=== PATIENT | female | born 1980 | race Two or more races ===

== ENCOUNTER 2016-12-23 19:00 | Emergency (ER) | payer OTHER ==
[~2016-12-23] VITALS: Ht 152.4 cm; Wt 45.4 kg
[2016-12-23] MEDS: IV NORMAL SALINE 1000 ML BAG IV ONE (19:41)
[2016-12-23] MEDS: ONDANSETRON IV *ER 4 MG/2 ML VIAL IV ONE (19:43)
[2016-12-23] MEDS: HYDROMORPHONE 1 MG/1 ML DISP.SYRIN IV ONE (19:43)
[2016-12-23 19:45] LABS: HEMATOCRIT 41.5 % (37-47); LYMPHOCYTES % (AUTO) 7.2 % (20.5-51.5); MEAN CORPUSCULAR HEMOGLOBIN 30.3 UUG (27.0-31.0); MEAN CORPUSCULAR HGB CONC 34 g/dL (32.0-37.0); MEAN CORPUSCULAR VOLUME 89.8 FL (81.0-99.0); NEUTROPHILS % (AUTO) 90.6 % (38.5-71.5); PLATELET COUNT (AUTO) 208 K/UL (150-450); RED BLOOD CELL COUNT(AUTO) 4.62 MIL/UL (4.2-5.4)
[2016-12-23 19:46] LABS: BASOPHILS % (AUTO) 0.2 % (0.0-2.0); EOSINOPHILS # (AUTO) 0.1 K/uL (0.0-0.7); EOSINOPHILS % (AUTO) 0.9 % (0.0-7.0); LYMPHOCYTES # (AUTO) 0.9 K/UL (0.8-4.8); MONOCYTES # (AUTO) 0.1 K/UL (0.1-1.30); MONOCYTES % (AUTO) 1.1 % (0.0-11.0); NEUTROPHILS # (AUTO) 10.9 K/UL (1.8-8.9)
[2016-12-23] MEDS ORDERED: HYDROMORPHONE 2 MG/1 ML DISP.SYRIN ONE (19:47)
[2016-12-23] MEDS ORDERED: ONDANSETRON 4 MG/2 ML VIAL ONE (19:47)
[2016-12-23 19:59] LABS: BILIRUBIN,DIRECT 0.1 mg/dL (0.0-0.2); BILIRUBIN,TOTAL 0.5 mg/dL (0.2-1.0); CREATININE 0.6 mg/dL (0.6-1.3); POTASSIUM 3.4 mmol/L (3.5-5.1); TOTAL PROTEIN, SERUM 7.7 g/dL (6.4-8.2)
--- NOTE | 2016-12-23 20:50 | NUR ---
Patient discharged to home in stable conditon. Written and verbal after care instructions given. Patient verbalizes understanding of instructions.
== END 2016-12-23 20:51 | disposition home or self-care (01) ==
LOC: ER 19:02
DX: O03.4 Incomplete spontaneous abortion without complication (principal)
CPT/HCPCS: 36415; 76815; 85025; 85730; A4663; J1170; J2405; J7030